=== PATIENT | female | born 1965 ===

== ENCOUNTER 2019-08-14 08:32 | Inpatient (IN) | payer OTHER ==
[~2019-08-14] VITALS: Ht 149.9 cm; Wt 68.0 kg
== END 2019-08-21 09:06 | DRG 741 ==
LOC: OB/GYN 08-19 06:00 → O/R 08-19 06:00 → SURH 08-19 07:00 → OB/GYN 08-19 13:23 → O/R 08-21 07:30 → OB/GYN 08-21 09:06
PROVIDERS: ADMIT Obstetrics & Gynecology Gynecologic Oncology
PROC: 0UT74ZZ Resection of Bilateral Fallopian Tubes, Percutaneous Endoscopic Approach (ICD-10-PCS; 2019-08-19)
PROC: 0UT24ZZ Resection of Bilateral Ovaries, Percutaneous Endoscopic Approach (ICD-10-PCS; 2019-08-19)
PROC: 07BC4ZX Excision of Pelvis Lymphatic, Percutaneous Endoscopic Approach, Diagnostic (ICD-10-PCS; 2019-08-19)
PROC: 0UT94ZZ Resection of Uterus, Percutaneous Endoscopic Approach (ICD-10-PCS; principal; 2019-08-19 07:00)
DX: C54.1 Malignant neoplasm of endometrium (principal); R59.0 Localized enlarged lymph nodes; K57.30 Diverticulosis of large intestine without perforation or abscess without bleeding